=== PATIENT | female | born 1980 | race Caucasian/White ===

== ENCOUNTER → 2020-03-10 16:37 | Outpatient (CLI) | payer OTHER, SELFPAY ==
[2020-03-10 18:13] LABS: Hemoglobin A1C% w Est Avg Glu 9.7 % (4.0-6.0)
[2020-03-10 18:18] LABS: Alanine Aminotransferase 20 IU/L (<35); Albumin 4.7 g/dL (3.5-5.0); Albumin Globulin Ratio 1.2 (1.0-2.8); Alkaline Phosphatase 117 U/L (38-126); Aspartate Aminotransferase 26 IU/L (14-36); BUN Creatinine Ratio 36.2 (6-22); Bilirubin Total 0.6 mg/dL (0.2-1.3); Blood Urea Nitrogen 25 mg/dL (7-17); Calcium 9.7 mg/dL (8.4-10.2); Carbon Dioxide 27 mmol/L (22-32); Chloride 93 mmol/L (98-107); Estimated Glomerular Filt Rate > 60.0 mL/min (>60); Globulin 3.9 g/dL (1.7-4.1); HEMOLYSIS < 15 (0-50); Potassium 4.6 mmol/L (3.4-5.1); Sodium 130 mmol/L (137-145); Total Protein 8.6 g/dL (6.3-8.2)
[2020-03-10 18:27] LABS: Glucose 556 mg/dL (70-100)
[2020-03-10 18:34] LABS: Free T4, Direct Thyroxine 1.58 ng/dL (0.78-2.19)
[2020-03-10 18:48] LABS: Thyroid Stimulating Hormone 1.08 uIU/mL (0.47-4.68)
== END ==
PROVIDERS: Referring Provider Obstetrics & Gynecology; Visit Provider Obstetrics & Gynecology
DX: E11.9 Type 2 diabetes mellitus without complications (principal); Z79.4 Long term (current) use of insulin
CPT/HCPCS: 36415; 80053; 83036; 84439; 84443

== ENCOUNTER → 2020-03-12 09:50 | Outpatient (CLI) | payer OTHER, SELFPAY ==
[2020-03-12 11:00] LABS: Alanine Aminotransferase 19 IU/L (<35); Albumin 4.3 g/dL (3.5-5.0); Albumin Globulin Ratio 1.2 (1.0-2.8); Alkaline Phosphatase 104 U/L (38-126); Aspartate Aminotransferase 25 IU/L (14-36); BUN Creatinine Ratio 30.8 (6-22); Bilirubin Total 0.8 mg/dL (0.2-1.3); Blood Urea Nitrogen 20 mg/dL (7-17); Calcium 9.6 mg/dL (8.4-10.2); Carbon Dioxide 33 mmol/L (22-32); Chloride 95 mmol/L (98-107); Estimated Glomerular Filt Rate > 60.0 mL/min (>60); Globulin 3.6 g/dL (1.7-4.1); Glucose 271 mg/dL (70-100); HEMOLYSIS < 15 (0-50); Potassium 5.2 mmol/L (3.4-5.1); Sodium 133 mmol/L (137-145); Total Protein 7.9 g/dL (6.3-8.2)
== END ==
PROVIDERS: PCP Family Medicine; Referring Provider Family Medicine; Visit Provider Family Medicine
DX: E11.9 Type 2 diabetes mellitus without complications (principal); Z79.4 Long term (current) use of insulin
CPT/HCPCS: 36415; 80053

== ENCOUNTER → 2020-04-14 15:37 | Outpatient (CLI) | payer OTHER, SELFPAY ==
--- NOTE | 2020-04-14 15:38 | DI.MG.S_ITS ---
BILATERAL DIGITAL SCREENING MAMMOGRAM 3D/2D WITH CAD: 04/14/2020 CLINICAL: Routine screening. Baseline exam. Family history of breast cancer. No prior exams were available for comparison. There are scattered fibroglandular elements in both breasts. Current study was also evaluated with a Computer Aided Detection (CAD) system. No significant masses, calcifications, or other findings are seen in either breast. IMPRESSION: NEGATIVE There is no mammographic evidence of malignancy. A 1 year screening mammogram is recommended. This exam was interpreted at Station ID: [id number]. NOTE: For mammograms, a report in lay terms will be sent to the patient. Approximately 15% of breast malignancies will not be visualized mammographically. In the management of a palpable breast mass, a negative mammogram must not discourage biopsy of a clinically suspicious lesion. Electronically Signed By: Vangie vail/berhane:04/14/2020 17:17:43 letter sent: Normal Exam ACR BI-RADS Category 1: Negative [id number]
== END ==
PROVIDERS: PCP Family Medicine; Referring Provider Obstetrics & Gynecology; Visit Provider Obstetrics & Gynecology
DX: Z12.31 Encounter for screening mammogram for malignant neoplasm of breast (principal)
CPT/HCPCS: 77063; 77067

== ENCOUNTER → 2020-05-05 08:17 | Outpatient (CLI) | payer OTHER, SELFPAY ==
[2020-05-05 09:45] LABS: Hemoglobin A1C% w Est Avg Glu 9.3 % (4.0-6.0)
[2020-05-05 10:01] LABS: Alanine Aminotransferase 19 IU/L (<35); Albumin 3.8 g/dL (3.5-5.0); Albumin Globulin Ratio 1.1 (1.0-2.8); Alkaline Phosphatase 85 U/L (38-126); Aspartate Aminotransferase 28 IU/L (14-36); BUN Creatinine Ratio 29.4 (6-22); Bilirubin Total 0.2 mg/dL (0.2-1.3); Blood Urea Nitrogen 15 mg/dL (7-17); Calcium 8.8 mg/dL (8.4-10.2); Carbon Dioxide 31 mmol/L (22-32); Chloride 103 mmol/L (98-107); Cholesterol 176 mg/dL (140-199); Estimated Glomerular Filt Rate > 60.0 mL/min (>60); Globulin 3.5 g/dL (1.7-4.1); Glucose 103 mg/dL (70-100); HDL Cholesterol 59 mg/dL (40-60); HEMOLYSIS < 15 (0-50); LDL Cholesterol Calculated 95 mg/dL (<100); Sodium 139 mmol/L (137-145); Total Protein 7.3 g/dL (6.3-8.2); Triglycerides 109 mg/dL (35-150)
[2020-05-05 10:23] LABS: Creatinine Urine Random 152.5 mg/dL
[2020-05-05 10:27] LABS: Microalbumi Creatinin Ratio Ur 26.8 ug/mg CR (<30); Microalbumin Urine Random 4.1 mg/dL (0-1.6)
== END ==
PROVIDERS: PCP Family Medicine; Referring Provider Family Medicine; Visit Provider Family Medicine
DX: E11.9 Type 2 diabetes mellitus without complications (principal); Z79.4 Long term (current) use of insulin
CPT/HCPCS: 36415; 80053; 80061; 82043; 82570; 83036

== ENCOUNTER → 2020-08-24 07:58 | Outpatient (CLI) | payer OTHER, SELFPAY | PROVIDERS: PCP Family Medicine; Referring Provider Family Medicine; Visit Provider Family Medicine | DX: E11.9 Type 2 diabetes mellitus without complications (principal); Z79.4 Long term (current) use of insulin | CPT/HCPCS: 36415; 83036 ==

== ENCOUNTER → 2021-11-24 08:03 | Outpatient (CLI) | payer OTHER, SELFPAY ==
[2021-11-24 09:08] LABS: Add Manual Diff / Slide Review NO; Basophils Absolute Auto 100 /uL (0-100); Basophils Percent Auto 0.7 % (0-2); Eosinophils Absolute Auto 200 /uL (0-450); Eosinophils Percent Auto 3.1 % (2-4); Hematocrit 36.7 % (36-46); Hemoglobin 12.2 g/dL (12.0-16.0); Lymphocytes Absolute Auto 2300 /uL (1100-4500); Lymphocytes Percent Auto 29.1 % (25-40); Mean Corpuscular HGB Conc 33.4 % (30-36); Mean Corpuscular Hemoglobin 27.1 PG (26-34); Mean Corpuscular Volume 81.2 fL (80-100); Monocytes Absolute Auto 500 /uL (0-900); Monocytes Percent Auto 6.2 % (3-14); Neutrophils Absolute Auto 4900 /uL (1500-7000); Neutrophils Percent Auto 60.9 % (50-75); Platelet Count 355 X10^3/uL (150-400); Red Blood Cell Count 4.52 X10^6/uL (4.0-5.2); Red Cell Distribution Width 14.5 % (11.6-14.8); White Blood Cell Count 8.1 X10^3/uL (4.5-11.0)
[2021-11-24 09:42] LABS: Alanine Aminotransferase 19 IU/L (<35); Albumin 3.7 g/dL (3.5-5.0); Albumin Globulin Ratio 1.1 (1.0-2.8); Alkaline Phosphatase 57 U/L (38-126); Aspartate Aminotransferase 30 IU/L (14-36); BUN Creatinine Ratio 18.2 (6-22); Bilirubin Total 0.2 mg/dL (0.2-1.3); Blood Urea Nitrogen 10 mg/dL (7-17); Calcium 8.9 mg/dL (8.4-10.2); Carbon Dioxide 28 mmol/L (22-32); Chloride 103 mmol/L (98-107); Cholesterol 162 mg/dL (140-199); Estimated Glomerular Filt Rate > 60 mL/min (>60); Globulin 3.3 g/dL (1.7-4.1); Glucose 131 mg/dL (70-100); HDL Cholesterol 58 mg/dL (40-60); HEMOLYSIS < 15 (0-50); LDL Cholesterol Calculated 85 mg/dL (<100); Sodium 138 mmol/L (137-145); Triglycerides 97 mg/dL (35-150)
[2021-11-24 09:45] LABS: Hemoglobin A1C% w Est Avg Glu 9.2 % (4.0-6.0)
[2021-11-24 10:31] LABS: TSH w/ Reflex to FT4 2.13 uIU/mL (0.47-4.68)
[2021-11-24 11:48] LABS: Creatinine Urine Random 89.4 mg/dL
[2021-11-24 11:49] LABS: Microalbumi Creatinin Ratio Ur 67.1 ug/mg CR (<30)
== END ==
PROVIDERS: PCP Family Medicine; Referring Provider Family Medicine; Visit Provider Family Medicine
DX: E11.9 Type 2 diabetes mellitus without complications (principal); I10 Essential (primary) hypertension; R80.9 Proteinuria, unspecified; Z79.4 Long term (current) use of insulin
CPT/HCPCS: 36415; 80053; 80061; 82043; 82570; 83036; 84443; 85025

== ENCOUNTER → 2021-12-03 10:32 | Outpatient (CLI) | payer OTHER, SELFPAY ==
--- NOTE | 2021-12-03 10:33 | DI.MG.S_ITS ---
BILATERAL DIGITAL SCREENING MAMMOGRAM 3D/2D WITH CAD: 12/03/2021 CLINICAL: Routine screening. Family history of breast cancer. Comparison is made to exam dated: 04/14/2020 mammogram - [facility]. There are scattered areas of fibroglandular density in both breasts (category b / 25%-50% glandular tissue). Current study was also evaluated with a Computer Aided Detection (CAD) system. No significant masses, calcifications, or other findings are seen in either breast. There has been no significant interval change. IMPRESSION: NEGATIVE There is no mammographic evidence of malignancy. A 1 year screening mammogram is recommended. This exam was interpreted at Station ID: [id number]. NOTE: For mammograms, a report in lay terms will be sent to the patient. Approximately 15% of breast malignancies will not be visualized mammographically. In the management of a palpable breast mass, a negative mammogram must not discourage biopsy of a clinically suspicious lesion. Electronically Signed By: Holger ladd/berhane:12/06/2021 08:07:33 letter sent: Normal Exam ACR BI-RADS Category 1: Negative [id number]
== END ==
PROVIDERS: PCP Family Medicine; Referring Provider Obstetrics & Gynecology; Visit Provider Obstetrics & Gynecology
DX: Z12.31 Encounter for screening mammogram for malignant neoplasm of breast (principal); Z80.3 Family history of malignant neoplasm of breast
CPT/HCPCS: 77063; 77067

== ENCOUNTER → 2022-02-21 07:55 | Outpatient (CLI) | payer OTHER, SELFPAY ==
[2022-02-21 14:41] LABS: Hemoglobin A1C% w Est Avg Glu 9.2 % (4.0-6.0)
== END ==
PROVIDERS: PCP Family Medicine; Referring Provider Family Medicine; Visit Provider Family Medicine
DX: E11.9 Type 2 diabetes mellitus without complications (principal); Z79.4 Long term (current) use of insulin
CPT/HCPCS: 36415; 83036

== ENCOUNTER → 2022-08-21 16:20 | Outpatient (CLI) | payer OTHER, SELFPAY ==
[2022-08-21 18:53] LABS: Creatinine Urine Random 202.7 mg/dL
[2022-08-21 18:55] LABS: Microalbumi Creatinin Ratio Ur 5.4 ug/mg CR (<30); Microalbumin Urine Random 1.1 mg/dL (0-1.6)
[2022-08-21 18:59] LABS: Alanine Aminotransferase 22 IU/L (<35); Albumin 3.9 g/dL (3.5-5.0); Albumin Globulin Ratio 1.2 (1.0-2.8); Alkaline Phosphatase 60 U/L (38-126); Aspartate Aminotransferase 27 IU/L (14-36); BUN Creatinine Ratio 23.6 (6-22); Bilirubin Total 0.2 mg/dL (0.2-1.3); Blood Urea Nitrogen 13 mg/dL (7-17); Calcium 9.1 mg/dL (8.4-10.2); Carbon Dioxide 32 mmol/L (22-32); Chloride 96 mmol/L (98-107); Estimated Glomerular Filt Rate > 60 mL/min (>60); Globulin 3.2 g/dL (1.7-4.1); Glucose 133 mg/dL (70-100); HEMOLYSIS < 15 (0-50); Potassium 3.9 mmol/L (3.4-5.1); Sodium 135 mmol/L (137-145); Total Protein 7.1 g/dL (6.3-8.2)
[2022-08-23 09:18] LABS: Labcorp Hemoglobin (Hb) A1c 9.5 % (4.8-5.6)
== END ==
PROVIDERS: PCP Family Medicine; Referring Provider Family Medicine; Visit Provider Family Medicine
DX: E11.9 Type 2 diabetes mellitus without complications (principal); I10 Essential (primary) hypertension; R80.9 Proteinuria, unspecified; Z79.4 Long term (current) use of insulin
CPT/HCPCS: 36415; 80053; 82043; 82570; 83036

== ENCOUNTER → 2022-11-21 08:14 | Outpatient (CLI) | payer OTHER, SELFPAY ==
[2022-11-21 10:12] LABS: Hemoglobin A1C% w Est Avg Glu 8.2 % (4.0-6.0)
== END ==
PROVIDERS: PCP Family Medicine; Referring Provider Family Medicine; Visit Provider Family Medicine
DX: E11.9 Type 2 diabetes mellitus without complications (principal); Z79.4 Long term (current) use of insulin
CPT/HCPCS: 36415; 83036

== ENCOUNTER → 2022-12-23 10:53 | Outpatient (CLI) | payer OTHER, SELFPAY ==
--- NOTE | 2022-12-23 | DI.MG.S_ITS ---
BILATERAL DIGITAL SCREENING MAMMOGRAM 3D/2D WITH CAD: 12/23/2022 CLINICAL: Routine screening. Family history of breast cancer. Comparison is made to exams dated: 12/03/2021 mammogram and 04/14/2020 mammogram - [facility]. There are scattered areas of fibroglandular density in both breasts (category b / 25%-50% glandular tissue). Current study was also evaluated with a Computer Aided Detection (CAD) system. No significant masses, calcifications, or other findings are seen in either breast. There has been no significant interval change. IMPRESSION: NEGATIVE There is no mammographic evidence of malignancy. A 1 year screening mammogram is recommended. Based on the Tyrer Cuzick model (a risk assessment model) the patient's lifetime risk is 16.6% and her 10 year risk is 2.3%. According to the ACR, ACS, and NCCN guidelines, an annual breast MRI exam along with mammogram is recommended if the patient's lifetime risk is 20% or greater. This exam was interpreted at Station ID: [id number]. NOTE: For mammograms, a report in lay terms will be sent to the patient. Approximately 15% of breast malignancies will not be visualized mammographically. In the management of a palpable breast mass, a negative mammogram must not discourage biopsy of a clinically suspicious lesion. Electronically Signed By: Yonathan rahman/berhane:12/25/2022 08:07:27 letter sent: Normal Exam ACR BI-RADS Category 1: Negative [id number]
== END ==
PROVIDERS: PCP Family Medicine; Referring Provider Obstetrics & Gynecology; Visit Provider Obstetrics & Gynecology
DX: Z12.31 Encounter for screening mammogram for malignant neoplasm of breast (principal); Z80.3 Family history of malignant neoplasm of breast
CPT/HCPCS: 77063; 77067

== ENCOUNTER → 2023-02-23 12:35 | Outpatient (CLI) | payer OTHER, SELFPAY ==
[2023-02-23 13:05] LABS: Add Manual Diff / Slide Review NO; Basophils Absolute Auto 100 /uL (0-100); Basophils Percent Auto 1.2 % (0-2); Eosinophils Absolute Auto 300 /uL (0-450); Eosinophils Percent Auto 4.3 % (2-4); Hematocrit 38.3 % (36-46); Hemoglobin 12.8 g/dL (12.0-16.0); Lymphocytes Absolute Auto 3100 /uL (1100-4500); Lymphocytes Percent Auto 40.1 % (25-40); Mean Corpuscular HGB Conc 33.5 % (30-36); Mean Corpuscular Hemoglobin 27.8 PG (26-34); Mean Corpuscular Volume 83.1 fL (80-100); Monocytes Absolute Auto 500 /uL (0-900); Monocytes Percent Auto 6.4 % (3-14); Neutrophils Absolute Auto 3700 /uL (1500-7000); Platelet Count 398 X10^3/uL (150-400); Red Blood Cell Count 4.61 X10^6/uL (4.0-5.2); Red Cell Distribution Width 13.8 % (11.6-14.8); White Blood Cell Count 7.6 X10^3/uL (4.5-11.0)
[2023-02-23 13:12] LABS: Hemoglobin A1C% w Est Avg Glu 9.3 % (4.0-6.0)
[2023-02-23 13:23] LABS: Alanine Aminotransferase 15 IU/L (<35); Albumin 4.1 g/dL (3.5-5.0); Albumin Globulin Ratio 1.3 (1.0-2.8); Alkaline Phosphatase 52 U/L (38-126); Aspartate Aminotransferase 18 IU/L (14-36); BUN Creatinine Ratio 26.5 (6-22); Bilirubin Total 0.6 mg/dL (0.2-1.3); Blood Urea Nitrogen 13 mg/dL (7-17); Calcium 9.6 mg/dL (8.4-10.2); Carbon Dioxide 30 mmol/L (22-32); Chloride 100 mmol/L (98-107); Cholesterol 176 mg/dL (140-199); Estimated Glomerular Filt Rate > 60 mL/min (>60); Globulin 3.2 g/dL (1.7-4.1); Glucose 96 mg/dL (70-100); HDL Cholesterol 59 mg/dL (40-60); HEMOLYSIS < 15 (0-50); LDL Cholesterol Calculated 100 mg/dL (<100); Potassium 3.9 mmol/L (3.4-5.1); Sodium 135 mmol/L (137-145); Total Protein 7.3 g/dL (6.3-8.2); Triglycerides 83 mg/dL (35-150)
[2023-02-23 13:53] LABS: TSH w/ Reflex to FT4 1.31 uIU/mL (0.47-4.68)
== END ==
PROVIDERS: PCP Family Medicine; Referring Provider Family Medicine; Visit Provider Family Medicine
DX: R80.9 Proteinuria, unspecified (principal); I10 Essential (primary) hypertension; E11.9 Type 2 diabetes mellitus without complications; Z79.4 Long term (current) use of insulin
CPT/HCPCS: 36415; 80053; 80061; 83036; 84443; 85025

== ENCOUNTER → 2023-05-19 09:11 | Outpatient (CLI) | payer OTHER, SELFPAY ==
[2023-05-19 11:08] LABS: Alanine Aminotransferase 15 IU/L (<35); Albumin 3.8 g/dL (3.5-5.0); Albumin Globulin Ratio 1.2 (1.0-2.8); Alkaline Phosphatase 47 U/L (38-126); Aspartate Aminotransferase 18 IU/L (14-36); BUN Creatinine Ratio 21.3 (6-22); Bilirubin Total 0.4 mg/dL (0.2-1.3); Blood Urea Nitrogen 10 mg/dL (7-17); Calcium 9.1 mg/dL (8.4-10.2); Carbon Dioxide 29 mmol/L (22-32); Chloride 101 mmol/L (98-107); Estimated Glomerular Filt Rate > 60 mL/min (>60); Globulin 3.1 g/dL (1.7-4.1); Glucose 69 mg/dL (70-100); HEMOLYSIS < 15 (0-50); Potassium 4.1 mmol/L (3.4-5.1); Sodium 138 mmol/L (137-145); Total Protein 6.9 g/dL (6.3-8.2)
== END ==
PROVIDERS: PCP Family Medicine; Referring Provider Family Medicine; Visit Provider Family Medicine
DX: I10 Essential (primary) hypertension (principal); E11.9 Type 2 diabetes mellitus without complications; Z79.4 Long term (current) use of insulin
CPT/HCPCS: 36415; 80053; 83036

== ENCOUNTER → 2024-01-05 11:10 | Outpatient (CLI) | payer OTHER, SELFPAY ==
--- NOTE | 2024-01-05 11:11 | DI.MG.S_ITS ---
BILATERAL DIGITAL SCREENING MAMMOGRAM 3D/2D WITH CAD: 01/05/2024 CLINICAL: Routine screening. Family history of breast cancer. Comparison is made to exams dated: 12/23/2022 mammogram, 12/03/2021 mammogram, and 04/14/2020 mammogram - [facility]. The breasts are heterogeneously dense, which may obscure small masses (category c / 51-75% glandular tissue). Current study was also evaluated with a Computer Aided Detection (CAD) system. There is a possible new oval equal density asymmetry in the right breast posterior depth superior region seen on the mediolateral oblique view only. No other significant masses, calcifications, or other findings are seen in either breast. IMPRESSION: INCOMPLETE: NEED ADDITIONAL IMAGING EVALUATION The possible new oval equal density asymmetry in the right breast is indeterminate. Additional views with possible ultrasound are recommended. Based on Tyrer-Cuzick model (a risk assessment model), the patient's lifetime risk is 24.8% and her 10 year risk is 3.9%. If a patient has an elevated risk, a more comprehensive evaluation should be considered and/or a referral to a genetic counselor. The [place] [employer], [place], and NCCN Guidelines advise the consideration of Breast MRI as an adjunct to screening mammography in patients whose Lifetime risk to develop breast cancer is 20% or higher. This exam was interpreted at Station ID: [id number]. NOTE: For mammograms, a report in lay terms will be sent to the patient. Approximately 15% of breast malignancies will not be visualized mammographically. In the management of a palpable breast mass, a negative mammogram must not discourage biopsy of a clinically suspicious lesion. Electronically Signed By: Holger Alba M.D. at/:01/05/2024 14:29:38 letter sent: Additional Imaging Needed ACR BI-RADS Category 0: Incomplete: Need Additional Imaging Evaluation
== END ==
PROVIDERS: PCP Family Medicine; Referring Provider Obstetrics & Gynecology; Visit Provider Obstetrics & Gynecology
DX: Z12.31 Encounter for screening mammogram for malignant neoplasm of breast (principal); Z80.3 Family history of malignant neoplasm of breast; R92.333 Mammographic heterogeneous density, bilateral breasts
CPT/HCPCS: 77063; 77067

== ENCOUNTER → 2024-01-15 08:45 | Outpatient (CLI) | payer OTHER, SELFPAY ==
--- NOTE | 2024-01-15 08:45 | DI.MG.S_ITS ---
UNILATERAL RIGHT DIGITAL DIAGNOSTIC MAMMOGRAM 3D/2D WITH ADDITIONAL VIEWS: 01/15/2024 CLINICAL: Additional evaluation requested from prior study. Comparison is made to exams dated: 01/05/2024 mammogram, 12/23/2022 mammogram, 12/03/2021 mammogram, and 04/14/2020 mammogram - [facility]. The breasts are heterogeneously dense, which may obscure small masses (category c / 51-75% glandular tissue). There is a possible asymmetry in the right breast posterior depth superior region seen on the mediolateral oblique view only. This is less prominent. No other significant masses or calcifications are seen in the breast. IMPRESSION: INCOMPLETE: NEED ADDITIONAL IMAGING EVALUATION The possible asymmetry in the right breast resembles fibroglandular tissue and is indeterminate. A targeted ultrasound is recommended and will immediately follow. Based on Tyrer-Cuzick model (a risk assessment model), the patient's lifetime risk is 24.8% and her 10 year risk is 3.9%. If a patient has an elevated risk, a more comprehensive evaluation should be considered and/or a referral to a genetic counselor. The [place] [employer], [place] [employer], and NCCN Guidelines advise the consideration of Breast MRI as an adjunct to screening mammography in patients whose Lifetime risk to develop breast cancer is 20% or higher. This exam was interpreted at Station ID: [id number]. NOTE: For mammograms, a report in lay terms will be sent to the patient. Approximately 15% of breast malignancies will not be visualized mammographically. In the management of a palpable breast mass, a negative mammogram must not discourage biopsy of a clinically suspicious lesion. Electronically Signed By: Obie Monson M.D. [facility] [place]/:01/15/2024 09:20:07 Entry: - 01/16/2024 15:22:23 letter sent: Need Ultrasound ACR BI-RADS Category 0: Incomplete: Need Additional Imaging Evaluation
--- NOTE | 2024-01-15 08:45 | DI.US.S_ITS ---
LIMITED ULTRASOUND OF RIGHT BREAST: 01/15/2024 CLINICAL: Patient returns today to evaluate a focal asymmetry in the right breast. Comparison is made to exams dated: 01/15/2024 mammogram, 01/05/2024 mammogram, 12/23/2022 mammogram, 12/03/2021 mammogram, and 04/14/2020 mammogram - [facility]. Real-time ultrasound of the right breast 1 o'clock region was performed. Felder scale images of the real-time examination were reviewed. No significant abnormalities were seen sonographically in the right breast. IMPRESSION: NEGATIVE There is no sonographic evidence of malignancy. A 1 year screening mammogram is recommended. Exam findings were conveyed to the patient. This exam was interpreted at Station ID: [id number]. Electronically Signed By: Obie Monson M.D. [facility]/:01/15/2024 09:20:47 letter sent: Normal Exam ACR BI-RADS Category 1: Negative
== END ==
LOC: MAMMO 08:45
PROVIDERS: PCP Family Medicine; Referring Provider Family Medicine; Visit Provider Family Medicine
DX: R92.8 Other abnormal and inconclusive findings on diagnostic imaging of breast (principal); R92.333 Mammographic heterogeneous density, bilateral breasts
CPT/HCPCS: 76642; 77065; G0279

== ENCOUNTER → 2024-01-16 08:13 | Outpatient (CLI) | payer OTHER, SELFPAY ==
[2024-01-16 09:18] LABS: Alanine Aminotransferase 15 IU/L (<35); Albumin 3.7 g/dL (3.5-5.0); Albumin Globulin Ratio 1.3 (1.0-2.8); Alkaline Phosphatase 41 U/L (38-126); Aspartate Aminotransferase 20 IU/L (14-36); BUN Creatinine Ratio 32.2 (6-22); Bilirubin Total 0.4 mg/dL (0.2-1.3); Blood Urea Nitrogen 19 mg/dL (7-17); Calcium 9.2 mg/dL (8.4-10.2); Carbon Dioxide 29 mmol/L (22-32); Chloride 103 mmol/L (98-107); Estimated Glomerular Filt Rate > 60 mL/min (>60); Globulin 2.8 g/dL (1.7-4.1); Glucose 118 mg/dL (70-100); HEMOLYSIS < 15 (0-50); Potassium 4.1 mmol/L (3.4-5.1); Sodium 137 mmol/L (137-145); Total Protein 6.5 g/dL (6.3-8.2)
[2024-01-16 09:59] LABS: Creatinine Urine Random 161.36 mg/dL
[2024-01-16 10:05] LABS: Microalbumin Urine Random 0.8 mg/dL (0-1.6)
[2024-01-16 10:06] LABS: Hemoglobin A1C% w Est Avg Glu 8.4 % (4.0-6.0)
== END ==
LOC: LAB 08:15
PROVIDERS: PCP Family Medicine; Referring Provider Family Medicine; Visit Provider Family Medicine
DX: R80.9 Proteinuria, unspecified (principal); I10 Essential (primary) hypertension; E11.9 Type 2 diabetes mellitus without complications; Z79.4 Long term (current) use of insulin
CPT/HCPCS: 36415; 80053; 82043; 82570; 83036

== ENCOUNTER 2024-04-03 08:56 | Day surgery (SDC) | payer OTHER, SELFPAY ==
[2024-03-28 11:44] VITALS: BMI 33.4
[2024-04-03 09:16] VITALS: BMI 33.4
[2024-04-03 09:37] VITALS: BP 155/92; PULSE 86; RESP 12; TEMP 36.6; O2SAT 98
--- NOTE | 2024-04-03 10:11 | P.HPOB_ITS ---
History of Present Illness History of Present Illness Reason for admission: vaginal bleeding (Heavy), pelvic pain (Persistent left lower quadrant) and pelvic mass (Right ovarian cyst) Narrative: Dacia Mejía is a 43 year old female 2 para 1 who presents for a diagnostic laparoscopy, possible removal of right ovarian cyst, and a D&C hysteroscopy with NovaSure endometrial ablation. This is being done due to persistent left lower quadrant pain, right ovarian cyst seen on ultrasound, menorrhagia, and adenomyosis by ultrasound. [facility] Medical History (Updated 03/30/24 @ 23:27 by Natalia Elizalde MD) Diabetes Microalbuminuria Hypertension Plantar warts (~1991) Migraines Headache Chicken pox (~1989) Kidney stones (~1999) Family History (Updated 05/04/20 @ 20:04 by Floridalma Carroll) Mother Breast cancer Grandfather Diabetes mellitus Parkinson's disease Social History household members: spouse Smoking Status: Former smoker alcohol intake: current Meds Home Medications and Allergies Home Medications Medication Instructions Recorded Confirmed Type pen needle, diabetic 33 gauge x #100 ea 08/21/22 03/27/24 Rx 5/32 (Easy Comfort Pen [place]) amlodipine 5 mg tablet 10 mg (2 x 5 mg) PO DAILY #180 tabs 01/15/24 04/03/24 Rx metoprolol succinate 50 mg 100 mg (2 x 50 mg) PO DAILY #180 01/15/24 04/03/24 Rx tablet,extended release 24 hr tabs losartan 100 See Rx Instructions .Route 01/18/24 04/03/24 Rx mg-hydrochlorothiazide 25 mg tablet .COMPLEX #90 tabs metformin 1,000 mg tablet See Rx Instructions .Route 01/18/24 04/03/24 Rx .COMPLEX #180 tabs tirzepatide 15 mg/0.5 mL 15 mg (0.5 mL) SUBCUT QWEEK #6 mL 01/18/24 04/03/24 Rx subcutaneous pen injector insulin glargine 100 unit/mL (3 30 unit SUBCUT BID 03/28/24 04/03/24 History mL) subcutaneous pen (Lantus Solostar U-100 Insulin) blood-glucose sensor (FreeStyle #1 ea 04/01/24 Rx Omero 3 Sensor device) Allergies Allergy/AdvReac Type Severity Reaction Status Date / Time glipizide Allergy Mild Excessively Verified 04/03/24 09:13 low glucose levels jardiance Allergy Mild yeast Uncoded 03/27/24 09:59 infection Exam Vital Signs (past 8 hours): - 04/03/24 09:37 Temperature 97.8 F Pulse Rate 86 Respiratory Rate 12 Blood Pressure 155/92 H Pulse Oximetry 98 Oxygen Delivery Method Room Air Oxygen Delivery Method Room Air Narrative Exam Narrative: HEENT: No thyromegaly, no anterior cervical or supraclavicular lymphadenopathy. Lungs:Clear to auscultation bilaterally, no wheezes. Cardiovascular: Regular rate and rhythm, no murmurs, rubs, or gallops. Abdomen: No scars. No hepatosplenomegaly. No masses palpable. External genitalia: Normal Vagina: Normal Cervix: Normal Bimanual exam: 8 Week size anteverted uterus. Mobile. Left lower quadrant tenderness on palpation. Extremities: No edema Assessment & Plan Assessment & Plan narrative: Assessment: 43-year-old 2 para 1 with persistent left lower quadrant pain, right ovarian simple cyst and adenomyosis seen on ultrasound, and menorrhagia Plan: Diagnostic laparoscopy with possible removal of right ovarian cyst, D&C hysteroscopy with NovaSure endometrial ablation The risks, benefits, and alternatives to the procedure were explained to the patient. The risks including bleeding, infection, injury to the bowel, bladder, or ureters, and possible uterine perforation. She understands all of these risks and agrees to proceed. A full par Q was held and consent form was signed. Time-Based Coding :: [TOTAL MINUTES] spent with patient and on the chart (including review of chart, obtaining history, exam, reviewing outside data, placing orders, documenting exam and treatment plan, and counseling patient) on [DATE].
--- NOTE | 2024-04-03 10:13 | PM.PREOP ---
Pre-operative Note Interval Note History & Physical reviewed/Exam performed by Physician: Yes Changes to H&P: No H&P completed within 30 days and has changed as indicated here:: 04/03/24
[2024-04-03] MEDS: SODIUM CHLORIDE 0.9% 1,000 ML 42 ML IV (10:36)
[2024-04-03 11:27] VITALS: BP 129/73; PULSE 95; RESP 16; TEMP 36.6; O2SAT 98
--- NOTE | 2024-04-03 11:35 | PM.GYNOP.1 ---
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
[2024-04-03 11:42] VITALS: BP 124/71; PULSE 93; RESP 14; TEMP 36.6; O2SAT 93
[2024-04-03 11:44] VITALS: BP 119/77; PULSE 86; RESP 16; O2SAT 93
[2024-04-03] MEDS: KETOROLAC 30 MG/ML VIAL IV (11:48)
[2024-04-03] MEDS: INSULIN LISPRO 100 UNIT/ML 3ML VIAL SUBCUT (11:56)
--- NOTE | 2024-04-03 19:24 | P.OP_ITS ---
Operative Date/Time/Diagnoses Date of procedure: 04/03/24 Time of procedure: 11:30 Pre-op diagnosis: Persistent left lower quadrant pain Adenomyosis and a right ovarian cyst on ultrasound Menorrhagia Post-op diagnosis: same Procedure & Clinicians Procedure: Procedures Operation Date: 04/03/24 10:30 Actual Procedure Side Surgeon p Laparoscopy, Diagnostic, SKEIN [employer] D[employer]ER HELPER Natalia Elizalde MD Indications: 43-year-old 2 para 1 with persistent left lower quadrant pain, a right ovarian cyst and adenomyosis on ultrasound, and menorrhagia. Surgeon: Natalia Elizalde Anesthesia Type: General (Endotracheal) Operative Notes Findings: 10 week size bulky uterus Right ovary with a 4-5 cm simple cyst Endometriosis of bilateral ovaries Tortuous left fallopian tube Normal right fallopian tube Normal liver and gallbladder Normal appendix Significant endometriosis of the uterine serosa, bilateral ovaries, bilateral ovarian fossa, bilateral fallopian tubes, posterior and anterior cul-de-sac Closure Type: primary Specimen(s): none Estimated blood loss (mL): 5 Blood products transfused: none Procedure in detail: After informed consent was obtained, the patient was taken to the operating room where she was placed in the dorsal supine position. After adequate general endotracheal anesthesia was achieved, she was placed in the dorsal lithotomy position, and prepped and draped in the usual sterile fashion. A time-out was performed. A bivalve speculum was placed into the vagina and the anterior lip of the cervix was grasped with a single-tooth tenaculum. The cervical os was sequentially dilated until the Zumi uterine manipulator could pass easily into the endometrial cavity. The single-tooth tenaculum was removed from the anterior lip of the cervix. The bivalve speculum was removed from the vagina. Attention was turned to the abdomen where 6 cc of 0.5% Marcaine with epinephrine were injected in the umbilical fold. A 5 mm incision was made. The Veress needle was placed into the peritoneal cavity, and its placement confirmed by aspiration and drop test. The abdominal cavity was insufflated with 4.2 L of CO2. The Veress needle was removed, and a long 5 mm trocar was placed with vis a view. A second incision was made 4 cm left lateral to the umbilicus after 6 cc of 0.5% Marcaine with epinephrine were injected. A second 5 mm trocar was placed under direct visualization. A probe was used to identify the appendix, t ubes and ovaries bilaterally, and bilateral ovarian fossa. It was also used to identify the anterior and posterior cul-de-sacs. The findings noted above were visualized. A decision was made to stop at this point as patient would need a hysterectomy. The instruments were removed from the abdomen. The CO2 was allowed to escape. The incisions were repaired with 4-0 Monocryl in a subcuticular fashion. Steri-Strips and Allevyn dressings were placed. The Zumi uterine manipulator was removed from the uterus. Sponge, lap, and instrument counts were correct x2. The patient tolerated the procedure well, and was taken to PACU in stable condition. Complications: none Post-operative Condition: stable Disposition: PACU Plan for aftercare: Home after recovery
== END 2024-04-03 12:38 | disposition home or self-care (01) ==
PROVIDERS: PCP Family Medicine; Referring Provider Obstetrics & Gynecology; Visit Provider Obstetrics & Gynecology
PROC: (CPT 49320; principal; 2024-04-03 10:30)
DX: R10.2 Pelvic and perineal pain (principal); N92.0 Excessive and frequent menstruation with regular cycle; N80.03 Adenomyosis of the uterus; N83.201 Unspecified ovarian cyst, right side; N80.00 Endometriosis of the uterus, unspecified; N80.103 Endometriosis of bilateral ovaries, unspecified depth; N80.203 Endometriosis of bilateral fallopian tubes, unspecified depth; N80.319 Endometriosis of the anterior cul-de-sac, unspecified depth
CPT/HCPCS: 49320; 82962; J0330; J1885; J2250; J2405; J2704; J3010; J3490

== ENCOUNTER 2024-05-02 10:49 | Day surgery (SDC) | payer OTHER, SELFPAY ==
[2024-04-28 12:46] VITALS: BMI 33.2
[2024-05-02] VITALS (7 sets, daily range): BP systolic 96–145; BP diastolic 56–86; PULSE 74–96; RESP 14–18; TEMP 36.3–36.8; O2SAT 94–100; BMI 33.2
--- NOTE | 2024-05-02 | PATH_ITS ---
[facility] Accession Number: [id number] No. of containers..01 Tissue . 01 Material submitted: . uterus - UTERUS, BILATERAL FALLOPIAN TUBES . 01 Diagnosis: UTERUS AND BILATERAL FALLOPIAN TUBES, SUPRACERVICAL HYSTERECTOMY AND BILATERAL SALPINGECTOMY: Uterus with adenomyosis and proliferative endometrium. Histologically unremarkable bilateral fimbriated fallopian tubes. Negative for malignancy. V 05/05/2024 1317 Local . 01 Electronically signed: . Tiffani Engle DO, Pathologist NPI- [id number] . 01 Gross description: . Received in formalin, labeled with two identifiers and uterus, bilateral fallopian tubes, is a fragmented uterus (150 g, 11.9 x 11.7 x 5.3 cm) with an attached fallopian tube (6.2 x 0.9 cm) and a detached fallopian tube (3.0 x 0.5 cm), with no cervix or additional adnexa. . The serosa is felipe and smooth with several small blue-steele punctate areas ranging from 0.2 x 0.1 x 0.1 cm to 0.3 x 0.2 x 0.1 cm. The presumed endometrium is felipe and velvety and averages 0.1 cm thick. The myometrium is felipe and trabecular with no discrete nodules or lesions identified. . Both tubes have violaceous, smooth serosa with no cysts identified. The lumens are stellate and unremarkable. . Funeral Director'S Assistant sections are submitted as follows: A1: Presumed endometrium. A2: Serosa with dusky lesions. A3: Longer fallopian tube to include one-half of bisected fimbria and cross sections. A4: [place] fallopian tube to include one-half of bisected fimbria and cross sections. ([id number]) /FRR 05/03/2024 1744 Local . 01 Pathologist provided ICD-10: N80.03 . 01 CPT . 000724 Specimen Comment: A courtesy copy of this report has been sent to [phone] Performed at: [address] [id number] MD Tre Coker MD Phone: [phone]
[2024-05-02] MEDS: LACTATED RINGERS 1,000 ML 21 ML IV ×2 (11:19→14:31)
[2024-05-02] MEDS: ACETAMINOPHEN 325 MG TABLET 975 MG PO (11:19)
[2024-05-02] MEDS: SCOPOLAMINE 1 PATCH TOP (11:20)
--- NOTE | 2024-05-02 11:59 | P.HPOB_ITS ---
History of Present Illness History of Present Illness Narrative: Dacia Mejía is a 43 year old female 1 para 1 who presents today for a laparoscopic supracervical hysterectomy, bilateral salpingectomy, removal of right ovarian cyst, and treatment of endometriosis. She is having this procedure done due to significant endometriosis seen at the time of laparoscopy. She has had menorrhagia and left-sided pelvic pain. She has a right ovarian cyst and an endometrial polyp. [facility] Medical History (Updated 04/18/24 @ 16:23 by Carine Ott MD) Diabetes Microalbuminuria Hypertension Plantar warts (~1991) Migraines Headache Chicken pox (~1989) Kidney stones (~1999) Surgical History (Updated 04/28/24 @ 13:06 by Mónica Zamora RN) Hx of laparoscopy (04/03/24) Family History (Updated 05/04/20 @ 20:04 by Floridalma Carroll) Mother Breast cancer Grandfather Diabetes mellitus Parkinson's disease Social History household members: spouse Smoking Status: Former smoker alcohol intake: current Meds Home Medications and Allergies Home Medications Medication Instructions Recorded Confirmed Type pen needle, diabetic 33 gauge x #100 ea 08/21/22 03/27/24 Rx 5/32 (Easy Comfort Pen [place]) amlodipine 5 mg tablet 10 mg (2 x 5 mg) PO DAILY #180 tabs 01/15/24 05/02/24 Rx metoprolol succinate 50 mg 100 mg (2 x 50 mg) PO DAILY #180 01/15/24 05/02/24 Rx tablet,extended release 24 hr tabs losartan 100 See Rx Instructions .Route 01/18/24 05/02/24 Rx mg-hydrochlorothiazide 25 mg tablet .COMPLEX #90 tabs metformin 1,000 mg tablet See Rx Instructions .Route 01/18/24 05/02/24 Rx .COMPLEX #180 tabs tirzepatide 15 mg/0.5 mL 15 mg (0.5 mL) SUBCUT QWEEK #6 mL 01/18/24 05/02/24 Rx subcutaneous pen injector insulin glargine 100 unit/mL (3 30 unit SUBCUT BID 03/28/24 05/02/24 History mL) subcutaneous pen (Lantus Solostar U-100 Insulin) blood-glucose sensor (FreeStyle #1 ea 04/01/24 Rx Omero 3 Sensor device) oxycodone 5 mg tablet 5 mg PO Q4H PRN pain #14 tabs 04/03/24 05/02/24 Rx Allergies Allergy/AdvReac Type Severity Reaction Status Date / Time glipizide Allergy Mild Excessively Verified 05/02/24 11:33 low glucose levels jardiance Allergy Mild yeast Uncoded 05/02/24 11:33 infection Exam Vital Signs (past 8 hours): - 05/02/24 11:23 Temperature 98.2 F Pulse Rate 74 Respiratory Rate 16 Blood Pressure 145/86 H Pulse Oximetry 100 Oxygen Delivery Method Room Air Oxygen Delivery Method Room Air Narrative Exam Narrative: HEENT: No thyromegaly, no anterior cervical or supraclavicular lymphadenopathy. Lungs:Clear to auscultation bilaterally, no wheezes. Cardiovascular: Regular rate and rhythm, no murmurs, rubs, or gallops. Abdomen: Well-healed laparoscopy scars. No hepatosplenomegaly. No masses palpable. External genitalia: Normal Vagina: Normal Cervix: Normal, parous. Bimanual exam: [8 Week size anteverted uterus. Mobile.] Extremities: No edema Assessment & Plan Assessment & Plan narrative: Assessment: 43-year-old 1 para 1 with menorrhagia, endometrial polyp, right ovarian cyst, endometriosis, and left lower quadrant pain. Plan: Laparoscopic supracervical hysterectomy, bilateral salpingectomy, treatment of endometriosis, and excision of right ovarian cyst. The risks, benefits, and alternatives to the procedure were explained to the patient. The risks including bleeding, infection, injury to the bowel, bladder, or ureters. She also understands that there is a possibility of an open procedure. A full par Q was held and consent form was signed. Time-Based Coding :: [TOTAL MINUTES] spent with patient and on the chart (including review of chart, obtaining history, exam, reviewing outside data, placing orders, documenting exam and treatment plan, and counseling patient) on [DATE].
--- NOTE | 2024-05-02 12:02 | PM.PREOP ---
Pre-operative Note Interval Note History & Physical reviewed/Exam performed by Physician: Yes Changes to H&P: Yes H&P completed within 30 days and has changed as indicated here:: 05/02/24
[2024-05-02] MEDS: CEFAZOLIN 2 GM/100 ML PREMIX 100 ML IV (12:25)
[2024-05-02] MEDS: BUPIVACAINE 0.5% W/ EPI (PF) 30 ML VIAL INJ (13:57)
[2024-05-02] MEDS: ROPIVACAINE 0.5% PF 5 MG/ML 20ML VIAL 5 ML INTRA-ARTI (13:58)
--- NOTE | 2024-05-02 14:13 | P.OP_ITS ---
Operative Date/Time/Diagnoses Date of procedure: 05/02/24 Time of procedure: 14:14 Pre-op diagnosis: Menorrhagia Endometriosis Simple right ovarian cyst Persistent left lower quadrant pain Endometrial polyp Post-op diagnosis: same Procedure & Clinicians Procedure: Procedures Operation Date: 05/02/24 12:15 Actual Procedure Side Surgeon p Laparoscopic Supracervical Hysterectomy with bilateral salpingectomy, right ovarian cyst excision Natalia Elizalde MD Indications: 43-year-old 1 para 1 with longstanding menorrhagia, persistent left lower quadrant pain, endometrial polyp on office endometrial biopsy, simple right ovarian cyst, and endometriosis that was confirmed by diagnostic laparo scopy. Surgeon: Natalia Elizalde [employer] Operator: Carine Ott Anesthesia Type: General and Local Operative Notes Findings: 10 week size anteverted uterus Suspect adenomyosis Endometriosis of the uterus, posterior cul-de-sac, and anterior cul-de-sacs Normal liver and gallbladder Normal appendix Normal tubes bilaterally 5 cm simple right ovarian cyst Normal left ovary Closure Type: primary Specimen(s): left tube, right tube and uterus Applied: catheter (Removed at the end of the case) Estimated blood loss (mL): 100 Blood products transfused: none Procedure in detail: The patient was taken to the operating room where she was placed in the dorsal supine position. After adequate general endotracheal anesthesia was achieved, she was placed in the dorsal lithotomy position, and prepped and draped in the usual sterile fashion. A timeout was performed. A bivalve speculum was placed into the vagina and the anterior lip of the cervix grasped with a single-tooth tenaculum. The cervical os was sequentially dilated until the ZUMI uterine manipulator could pass easily into the endometrial cavity. The single-tooth tenaculum was removed from the anterior lip of the cervix, and the bivalve speculum was removed from the vagina. Attention was then turned to the abdomen where 6 mL of half percent Marcaine with epinephrine were injected in the umbilical fold through the previous laparoscopy incision. A 5 mm incision was made. The Verees needle was placed into the peritoneal cavity, and its placement confirmed by aspiration and drop test. The abdomen was insufflated with 4.2 L of CO2. The Verees needle was removed. A 5 mm trocar was placed without difficulty. Two other 5 mm incisions were made 4 cm lateral to the midline, at the level of the umbilicus, after 6 cc of 0.5% Marcaine with epinephrine were injected. Two 5 mm trocars were placed under direct visualization. The right tube was grasped with an atraumatic grasper. Using the power seal, the mesosalpinx was cauterized and cut all the way down to the cornua of the uterus. The cornua of the uterus was then grasped with an atraumatic grasper. The utero-ovarian ligaments were cauterized and cut. The round ligament and broad ligament was cauterized and cut with the power seal. Hemostasis was achieved. The bladder flap was created using the power seal with cautery and cut fdc across. The uterine arteries on the right side were extensively cauterized with the power seal. All of this was repeated on the left side. The remainder of the bladder flap was created using the power seal, and the bladder taken down off the lower uterine segment and cervix. Using the Linaloop, the cervix was amputated from the uterus 2 cm above the uterosacral ligaments, after the ZUMI uterine manipulator was removed from the uterus. There was bleeding noted bilaterally from the cervical branch of the uterine artery, and this was cauterized for hemostasis. A sponge stick was placed into the vagina. 6 mL of half percent Marcaine with epinephrine were injected above the pubic symphysis. A 12 mm incision was made. A 12 mm trocar was placed. A large Endobag was placed through the suprapubic trocar and the uterus and tubes were placed into the Endobag. The trocar was removed. The edges of the bag we re brought up through the incision. The fascia was extended bilaterally with the Meehan scissors. The uterus was grasped with a Annetta. The Tadeo was placed into the endobag. The uterus was hand morcellated in approximately 10 pieces. The Endobag and Tadeo were removed from the peritoneal cavity. The fascia on the suprapubic incision was closed with 0 Vicryl in a running fashion. The abdomen was re-insufflated. The pelvis was irrigated with warm normal saline. No bleeding was noted. The spatula cautery was used to cauterize the endocervical canal. The spatula cautery was used to fulgurate proximally 12 endometriosis lesions in the anterior and posterior cul-de-sacs. The instruments were removed from the abdomen. The CO2 was allowed to escape. 2 simple interrupted sutures were placed in the subcutaneous layer on the suprapubic incision after copious irrigation. All of the incisions were closed with 4-0 Monocryl in a subcuticular fashion. The moistened sponge stick was r emoved from the vagina. Sponge, lap, and instrument counts were correct x-2. The patient tolerated the procedure well, was taken to PACU in stable condition. Complications: none Post-operative Condition: stable Disposition: PACU Plan for aftercare: Home after recovery
[2024-05-02] MEDS: OXYCODONE IR 5 MG TABLET PO ×2 (14:27→15:14)
== END 2024-05-02 16:05 | disposition home or self-care (01) ==
LOC: OR 10:50 → AC 10:51
PROVIDERS: PCP Family Medicine; Referring Provider Obstetrics & Gynecology; Visit Provider Obstetrics & Gynecology
PROC: 0UT94ZL Resection of Uterus, Supracervical, Percutaneous Endoscopic Approach (ICD-10-PCS; CPT 58542; principal; 2024-05-02 12:15)
DX: N80.03 Adenomyosis of the uterus (principal); R10.2 Pelvic and perineal pain; N83.291 Other ovarian cyst, right side; N80.00 Endometriosis of the uterus, unspecified; N80.329 Endometriosis of the posterior cul-de-sac, unspecified depth; N80.319 Endometriosis of the anterior cul-de-sac, unspecified depth
CPT/HCPCS: 58542; 58662; 81025; 82962; J0330; J0690; J1100; J1171; J2250; J2405; J2704; J3010; J3490

== ENCOUNTER → 2024-06-21 10:57 | Outpatient (CLI) | payer OTHER, SELFPAY ==
[2024-06-21 11:22] LABS: Add Manual Diff / Slide Review NO; Basophils Absolute Auto 100 /uL (0-100); Basophils Percent Auto 1.2 % (0-2); Eosinophils Absolute Auto 400 /uL (0-450); Eosinophils Percent Auto 4.4 % (2-4); Hematocrit 37.7 % (36-46); Hemoglobin 12.5 g/dL (12.0-16.0); Lymphocytes Absolute Auto 2800 /uL (1100-4500); Lymphocytes Percent Auto 34.7 % (25-40); Mean Corpuscular HGB Conc 33.2 % (30-36); Mean Corpuscular Hemoglobin 26.9 PG (26-34); Mean Corpuscular Volume 80.8 fL (80-100); Monocytes Absolute Auto 400 /uL (0-900); Monocytes Percent Auto 5.2 % (3-14); Neutrophils Absolute Auto 4400 /uL (1500-7000); Neutrophils Percent Auto 54.5 % (50-75); Platelet Count 478 X10^3/uL (150-400); Red Blood Cell Count 4.67 X10^6/uL (4.0-5.2); Red Cell Distribution Width 15.5 % (11.6-14.8)
[2024-06-21 11:46] LABS: Hemoglobin A1C% w Est Avg Glu 7.8 % (4.0-6.0)
[2024-06-21 11:51] LABS: Alanine Aminotransferase 24 IU/L (<35); Albumin 4.2 g/dL (3.5-5.0); Albumin Globulin Ratio 1.4 (1.0-2.8); Alkaline Phosphatase 54 U/L (38-126); Aspartate Aminotransferase 30 IU/L (14-36); BUN Creatinine Ratio 27.6 (6-22); Bilirubin Total 0.5 mg/dL (0.2-1.3); Blood Urea Nitrogen 16 mg/dL (7-17); Calcium 9.5 mg/dL (8.4-10.2); Carbon Dioxide 27 mmol/L (22-32); Chloride 101 mmol/L (98-107); Cholesterol 163 mg/dL (140-199); Estimated Glomerular Filt Rate > 60 mL/min (>60); Globulin 2.9 g/dL (1.7-4.1); Glucose 134 mg/dL (70-100); HDL Cholesterol 61 mg/dL (40-60); HEMOLYSIS < 15 (0-50); LDL Cholesterol Calculated 89 mg/dL (<100); Potassium 4.5 mmol/L (3.4-5.1); Sodium 137 mmol/L (137-145); Total Protein 7.1 g/dL (6.3-8.2); Triglycerides 65 mg/dL (35-150)
[2024-06-21 12:21] LABS: TSH w/ Reflex to FT4 1.97 uIU/mL (0.47-4.68)
== END ==
PROVIDERS: PCP Family Medicine; Referring Provider Family Medicine; Visit Provider Family Medicine
DX: I10 Essential (primary) hypertension (principal); E11.9 Type 2 diabetes mellitus without complications; Z79.4 Long term (current) use of insulin; R80.9 Proteinuria, unspecified
CPT/HCPCS: 36415; 80053; 80061; 83036; 84443; 85025

== ENCOUNTER → 2024-09-25 10:04 | Outpatient (CLI) | payer OTHER, SELFPAY ==
[2024-09-25 11:01] LABS: Hemoglobin A1C% w Est Avg Glu 8.5 % (4.0-6.0)
[2024-09-25 11:07] LABS: Alanine Aminotransferase 20 IU/L (<35); Albumin 4.1 g/dL (3.5-5.0); Albumin Globulin Ratio 1.3 (1.0-2.8); Alkaline Phosphatase 58 U/L (38-126); Aspartate Aminotransferase 25 IU/L (14-36); BUN Creatinine Ratio 31.5 (6-22); Bilirubin Total 0.5 mg/dL (0.2-1.3); Blood Urea Nitrogen 17 mg/dL (7-17); Calcium 9.1 mg/dL (8.4-10.2); Carbon Dioxide 32 mmol/L (22-32); Chloride 97 mmol/L (98-107); Cholesterol 176 mg/dL (140-199); Estimated Glomerular Filt Rate > 60 mL/min (>60); Globulin 3.1 g/dL (1.7-4.1); Glucose 200 mg/dL (70-99); HDL Cholesterol 61 mg/dL (40-60); HEMOLYSIS < 15 (0-50); LDL Cholesterol Calculated 99 mg/dL (<100); Potassium 4.3 mmol/L (3.4-5.1); Sodium 135 mmol/L (137-145); Total Protein 7.2 g/dL (6.3-8.2); Triglycerides 82 mg/dL (35-150)
[2024-09-25 11:35] LABS: TSH w/ Reflex to FT4 1.75 uIU/mL (0.47-4.68)
== END ==
PROVIDERS: PCP Family Medicine; Referring Provider Family Medicine; Visit Provider Family Medicine
DX: E11.9 Type 2 diabetes mellitus without complications (principal); I10 Essential (primary) hypertension; Z79.4 Long term (current) use of insulin
CPT/HCPCS: 36415; 80053; 80061; 83036; 84443

== ENCOUNTER → 2024-12-20 10:46 | Outpatient (CLI) | payer OTHER, SELFPAY ==
[2024-12-20 11:31] LABS: Add Manual Diff / Slide Review NO; Hematocrit 36.1 % (36-46); Hemoglobin 12.1 g/dL (12.0-16.0); Lymphocytes Absolute Auto 2500 /uL (1100-4500); Mean Corpuscular HGB Conc 33.5 % (30-36); Mean Corpuscular Hemoglobin 27.0 PG (26-34); Mean Corpuscular Volume 80.8 fL (80-100); Platelet Count 404 X10^3/uL (150-400)
[2024-12-20 11:41] LABS: Hemoglobin A1C% w Est Avg Glu 8.3 % (4.0-6.0)
[2024-12-20 11:46] LABS: Alanine Aminotransferase 17 IU/L (<35); Albumin 3.9 g/dL (3.5-5.0); Albumin Globulin Ratio 1.3 (1.0-2.8); Alkaline Phosphatase 51 U/L (38-126); Blood Urea Nitrogen 17 mg/dL (7-17); Calcium 9.0 mg/dL (8.4-10.2); Carbon Dioxide 26 mmol/L (22-32); Chloride 102 mmol/L (98-107); Cholesterol 147 mg/dL (140-199); Estimated Glomerular Filt Rate > 60 mL/min (>60); Globulin 3.0 g/dL (1.7-4.1); Glucose 139 mg/dL (70-99); HDL Cholesterol 57 mg/dL (40-60); HEMOLYSIS < 15 (0-50); Potassium 4.3 mmol/L (3.4-5.1); Sodium 136 mmol/L (137-145); Total Protein 6.9 g/dL (6.3-8.2); Triglycerides 66 mg/dL (35-150)
[2024-12-20 12:17] LABS: TSH w/ Reflex to FT4 1.63 uIU/mL (0.47-4.68)
[2024-12-20 12:26] LABS: Microalbumi Creatinin Ratio Ur 10.0 ug/mg CR (<30)
== END ==
PROVIDERS: PCP Family Medicine; Referring Provider Family Medicine; Visit Provider Family Medicine
DX: E11.9 Type 2 diabetes mellitus without complications (principal); Z79.4 Long term (current) use of insulin; I10 Essential (primary) hypertension; R80.9 Proteinuria, unspecified
CPT/HCPCS: 36415; 80053; 80061; 82043; 82172; 82570; 83036; 84443; 85025

== ENCOUNTER → 2025-03-07 11:09 | Outpatient (CLI) | payer OTHER, SELFPAY ==
--- NOTE | 2025-03-07 11:11 | DI.MG.S_ITS ---
MM screening mammo BI: 03/07/2025. BI-RADS: 1 CLINICAL: 44-year old female for bilateral screening mammogram. Tyrer-Cuzick lifetime risk of 24.8%. Current reported family history of breast cancer: mother and maternal aunt. PRIOR EXAMS 01/15/2024, 01/05/2024, 12/23/2022, 12/03/2021, MAMMOGRAPHY TECHNIQUE: 2D and 3D (tomosynthesis) digital mammographic views obtained, with additional images as needed for full coverage. Current study was also evaluated with a Computer Aided Detection (CAD) system. DENSITY C. The breasts are heterogeneously dense, which may obscure small masses. MAMMOGRAPHY FINDINGS Bilateral: No suspicious mass, asymmetry, microcalcification, or other abnormality seen. IMPRESSION: * No evidence of malignancy. RECOMMENDATIONS Bilateral * According to the Tyrer-Cuzick Risk Assessment Model, based on the information provided your patient has a greater than 20% lifetime risk for developing breast cancer. Consider supplemental screening with breast MRI and participation in a high risk screening program. * Annual screening mammography. OVERALL ASSESSMENT CATEGORY BI-RADS-1: Negative. The [employer] recommends annual screening mammography beginning at age 40 for women with average risk of breast cancer. ELECTRONICALLY SIGNED: Holger Alba M.D. on 03/08/2025 at 08:53:12 PM PT Interpreting Station ID: [id number]
== END ==
LOC: MAMMO 11:09
PROVIDERS: PCP Family Medicine; Referring Provider Family Medicine; Visit Provider Family Medicine
DX: Z12.31 Encounter for screening mammogram for malignant neoplasm of breast (principal); R92.333 Mammographic heterogeneous density, bilateral breasts; Z80.3 Family history of malignant neoplasm of breast
CPT/HCPCS: 77063; 77067